=== PATIENT | female | born 1965 | race African-American/Black ===

== ENCOUNTER 2021-02-28 01:53 | Emergency (ER) | payer MEDICAID ==
[~2021-02-28] VITALS: Ht 162.6 cm; Wt 54.5 kg
[2021-02-28 02:53] VITALS: BP 135/84
[2021-02-28] MEDS ORDERED: ACETAMINOPHEN 325 MG TABLET PO ONE (04:30)
[2021-02-28] MEDS ORDERED: IBUPROFEN 400 MG TABLET PO ONE (04:30)
== END 2021-02-28 05:20 | disposition home or self-care (01) ==
LOC: EMS 01:54
DX: M19.042 Primary osteoarthritis, left hand (principal)
CPT/HCPCS: 99283

== ENCOUNTER 2021-05-01 10:48 | Emergency (ER) | payer SELFPAY ==
[~2021-05-01] VITALS: Ht 162.6 cm; Wt 59.1 kg
[2021-05-01 10:50] VITALS: BP 118/76
== END 2021-05-01 12:25 | disposition home or self-care (01) ==
LOC: EMS 10:49
DX: R20.2 Paresthesia of skin (principal)
CPT/HCPCS: 99281; Z7502